=== PATIENT | female | born 1930 | race Caucasian/White ===

== ENCOUNTER → 2017-10-25 | Outpatient (CLI) | payer MEDICARE ==
[~2017-10-25] MED LIST: ALPR0.254; ASP81TEC; ASP81TEC PO; ASPI-983 PO; CALC-685 PO; CARV3.122 PO; CEFU250T PO; CHOL2000 PO; CTLP20T; CYAN1TAB26 PO; DULO30CA PO; FLC1T PO; FLUC40SU PO; FLUT9.9S NS; HCT25T; LEVO88TA54; LUMIGAN 0.03% OU; LVST20T; MULT1TAB63; NF-ESOM40C PO; OMEP-10; OMEP40CA36 PO; POTA10CA16 PO; SCR1T PO; SCR1T1 PO; levothyroxine PO; reclast IV
--- NOTE | 2017-10-25 13:46 | Diagnostic Imaging Report ---
PROCEDURE: CT chest without contrast. TECHNIQUE: Multiple contiguous axial images were obtained through the chest without the use of intravenous contrast. INDICATION: Pulmonary nodule. No prior CT chest studies are available for comparison. FINDINGS: No axillary lymphadenopathy is seen. Hilar and mediastinal evaluation is limited without intravenous contrast. There are some calcified lymph nodes in the right hilum and subcarinal location consistent with prior granulomatous exposure. There are coronary arterial calcifications present. There is a large hiatal hernia present. No pericardial or pleural fluid is detected. Parenchymal evaluation does show a 10 mm calcified nodule in the right lower lobe consistent with a granuloma. No noncalcified pulmonary nodules are seen. IMPRESSION: 1. Calcified mediastinal, right hilar lymph nodes as well as granuloma in the right lower lobe consistent with prior granulomatous exposure. No noncalcified pulmonary masses are seen. 2. Large hiatal hernia. 3. No other significant abnormality is seen. Dictated by: Dictated on workstation # [id number]
== END ==
LOC: RAD 13:02
PROVIDERS: ATTEND Nurse Practitioner Family
DX: I89.8 Other specified noninfective disorders of lymphatic vessels and lymph nodes (principal); J84.10 Pulmonary fibrosis, unspecified; K44.9 Diaphragmatic hernia without obstruction or gangrene; R91.1 Solitary pulmonary nodule
CPT/HCPCS: 71250